=== PATIENT | female | born 1985 | race African-American/Black ===

== ENCOUNTER 2016-08-11 21:16 | Emergency (ER) | payer OTHER ==
[~2016-08-11] VITALS: Ht 160 cm; Wt 52.0 kg
[~2016-08-11 21:16] MED LIST: ALBU8I INH; MMW SWISH-SWAL
[2016-08-11 21:20] VITALS: BP 116/68; PULSE 106; RESP 18; TEMP 97.8; O2SAT 100
[2016-08-11] MEDS ORDERED: diphenhydrAMINE HCL 50 MG/ML VIAL ONE (21:20)
[2016-08-11] MEDS ORDERED: diphenhydrAMINE HCL 50 MG/ML VIAL IM STA (21:20)
[2016-08-11] MEDS ORDERED: LORazepam 2 MG/ML VIAL ONE (21:20)
[2016-08-11] MEDS ORDERED: HALOPERIDOL LACTATE 5 MG/ML AMP ONE (21:21)
[2016-08-11] MEDS ORDERED: HALOPERIDOL LACTATE 5 MG/ML AMP IM ONE (21:30)
[2016-08-11] MEDS ORDERED: LORazepam 2 MG/ML VIAL IM ONE (21:30)
--- NOTE | 2016-08-11 21:34 | PD ---
HPI Chief Complaint: Psychiatric Symptoms Time Seen by Provider: 21:27 Travel History International Travel<30 days: No Contact w/Intl Traveler<30days: No Traveled to known affect area: No History of Present Illness HPI This is a 31-year-old female who presents to the emergency department under a Pedersen act because police came to her house and she was screaming, irrational, yelling at her neighbor and cursing on the front lawn. She had 2 children in the house. Police tried to de-escalate her for about an hour but she was not able to be talked down. The patient is not able to provide any history. She is cursing, yelling and screaming at staff, not providing any longitudinal history. Patient did present here in 2005 with an episode of psychosis and at that time it was attributed to elicit drugs. PFSH Past Medical History Cerebrovascular Accident: No Diminished Hearing: No Myocardial Infarction: No ?: Unknown : 2 Para: 2 Social History Alcohol Use: No Tobacco Use: No Substance Use: Yes (COCAINE) Allergies-Medications (Allergen,Severity, Reaction): Coded Allergies: No Known Allergies (Verified , 08/29/15) Reported Meds & Prescriptions Reported Meds & Active Scripts Active No Active Prescriptions or Reported Medications Review of Systems Except as stated in HPI: all other systems reviewed are Neg Physical Exam Narrative GENERAL: Agitated, yelling, cursing SKIN: Warm and dry. HEAD: Normocephalic. EYES: No scleral icterus. No injection or drainage. NECK: Supple, trachea midline. CARDIOVASCULAR: Regular rate and rhythm without murmurs. RESPIRATORY: Breath sounds equal bilaterally. No accessory muscle use. GASTROINTESTINAL: Abdomen soft, non-tender, nondistended. MUSCULOSKELETAL: No cyanosis, or edema. PSYCH: poor insight and judgement Data Data Last Documented VS Vital Signs Date Time Temp Pulse Resp B/P Pulse Ox O2 Delivery O2 Flow Rate FiO2 08/12/16 02:34 104 20 140/71 99 08/11/16 22:20 Room Air 08/11/16 21:20 97.8 Orders Haloperidol Inj (Haldol Inj) (08/11/16 21:30) Diphenhydramine Inj (Benadryl Inj) (08/11/16 21:20) Lorazepam Inj (Ativan Inj) (08/11/16 21:30) Lorazepam Inj (Ativan Inj) (08/11/16 21:20) Diphenhydramine Inj (Benadryl Inj) (08/11/16 21:20) Haloperidol Inj (Haldol Inj) (08/11/16 21:21) Complete Blood Count With Diff (08/11/16 21:26) Comprehensive Metabolic Panel (08/11/16 21:26) Drug Screen, Random Urine (08/11/16 21:26) Iv Access Insert/Monitor (08/11/16 21:26) Alcohol (Ethanol) (08/11/16 21:26) Salicylates (Aspirin) (08/11/16 21:26) Tylenol (Acetaminophen) (08/11/16 21:26) Psych Screen (08/11/16 21:26) Restraints Non-Violent LOAN.Q3H (08/11/16 21:54) Diet Regular Basic (08/12/16 Breakfast) Ed Urine Pregnancytest Poc (08/12/16 03:30) Labs Laboratory Tests Test 08/11/16 08/12/16 21:30 03:13 White Blood Count 9.5 TH/MM3 Red Blood Count 4.68 MIL/MM3 Hemoglobin 15.1 GM/DL Hematocrit 44.8 % Mean Corpuscular Volume 95.8 FL Mean Corpuscular Hemoglobin 32.2 PG Mean Corpuscular Hemoglobin 33.6 % Concent Red Cell Distribution Width 13.6 % Platelet Count 168 TH/MM3 Mean Platelet Volume 10.6 FL Neutrophils (%) (Auto) 62.3 % Lymphocytes (%) (Auto) 28.3 % Monocytes (%) (Auto) 8.6 % Eosinophils (%) (Auto) 0.2 % Basophils (%) (Auto) 0.6 % Neutrophils # (Auto) 5.9 TH/MM3 Lymphocytes # (Auto) 2.7 TH/MM3 Monocytes # (Auto) 0.8 TH/MM3 Eosinophils # (Auto) 0.0 TH/MM3 Basophils # (Auto) 0.1 TH/MM3 CBC Comment DIFF FINAL Differential Comment Sodium Level 140 MEQ/L Potassium Level 3.8 MEQ/L Chloride Level 108 MEQ/L Carbon Dioxide Level 19.2 MEQ/L Anion Gap 13 MEQ/L Blood Urea Nitrogen 9 MG/DL Creatinine 0.89 MG/DL Estimat Glomerular Filtration 89 ML/MIN Rate Random Glucose 120 MG/DL Calcium Level 8.7 MG/DL Total Bilirubin 0.8 MG/DL Aspartate Amino Transf 25 U/L (AST/SGOT) Alanine Aminotransferase 28 U/L (ALT/SGPT) Alkaline Phosphatase 68 U/L Total Protein 8.4 GM/DL Albumin 4.6 GM/DL Salicylates Level 5.5 MG/DL Acetaminophen Level LESS THAN 2.0 MCG/ML Ethyl Alcohol Level 213 MG/DL Urine Opiates Screen NEG Urine Barbiturates Screen NEG Urine Amphetamines Screen NEG Urine Benzodiazepines Screen NEG Urine Cocaine Screen NEG Urine Cannabinoids Screen POS MDM Medical Decision Making Medical Screen Exam Complete: Yes Emergency Medical Condition: Yes Interpretation(s) Afebrile, tachycardic, normotensive No leukocytosis Electrolytes are reassuring Alcohol level is 213 Positive for cannabinoids Differential Diagnosis Alcohol intoxication, synthetic cannabinoid intoxication, electrolyte abnormality, intentional overdose Narrative Course This is a 31-year-old female who was brought in under a Pedersen act by police for bizarre and agitated behavior. She did acknowledge alcohol use. She was brought into the emergency department and on arrival she was belligerent, screaming, cursing and combative with staff. She was placed in leather restraints and given chemical sedation with Haldol, Ativan and Benadryl. She significantly improved during her stay in the emergency department. She was cleared medically and will be admitted psychiatrically to act. I suspect her symptoms are in the setting of drug induced psychosis. Scripts No Active Prescriptions or Reported Meds Yeni Scales MD Aug 11, 2016 21:34
[2016-08-11 21:56] LABS: AUTOMATED NEUTROPHIL # 5.9 TH/MM3 (1.8-7.7); BASOPHIL # 0.1 TH/MM3 (0-0.2); BASOPHIL % 0.6 % (0.0-2.0); EOSINOPHIL % 0.2 % (0.0-4.0); HEMATOCRIT 44.8 % (35.0-46.0); HEMO FLAGS DIFF FINAL; LYMPH % 28.3 % (9.0-44.0); LYMPHOCYTE # 2.7 TH/MM3 (1.0-4.8); MEAN CELL VOLUME 95.8 FL (80.0-100.0); MEAN CORPUSCULAR HEMOGLOBIN 32.2 PG (27.0-34.0); MEAN CORPUSCULAR HGB CONC 33.6 % (32.0-36.0); MONO % 8.6 % (0.0-8.0); NEUT % 62.3 % (16.0-70.0); PLATELET COUNT 168 TH/MM3 (150-450); RED BLOOD COUNT 4.68 MIL/MM3 (4.00-5.30); RED CELL DISTRIBUTION WIDTH 13.6 % (11.6-17.2); WHITE BLOOD COUNT 9.5 TH/MM3 (4.0-11.0)
[2016-08-11 22:14] LABS: ALT (GPT) 28 U/L (10-53); ANION GAP 13 MEQ/L (5-15); AST (GOT) 25 U/L (15-37); BICARBONATE 19.2 MEQ/L (21.0-32.0); BLOOD UREA NITROGEN 9 MG/DL (7-18); CHLORIDE 108 MEQ/L (98-107); GLOMERULAR FILTRATION RATE 89 ML/MIN (>89); POTASSIUM 3.8 MEQ/L (3.5-5.1); SODIUM (NA) 140 MEQ/L (136-145)
[2016-08-11 22:16] LABS: ALKALINE PHOSPHATASE 68 U/L (45-117); TOTAL BILIRUBIN ADULT 0.8 MG/DL (0.2-1.0)
[2016-08-11 22:20] VITALS: BP 116/81; PULSE 90; RESP 17; O2SAT 99
[2016-08-11 22:27] LABS: ACETAMINOPHEN LESS THAN 2.0 MCG/ML (10.0-30.0)
[2016-08-12 02:34] VITALS: BP 140/71; PULSE 104; RESP 20; O2SAT 99
[2016-08-12 04:09] LABS: AMPHETAMINE, URINE NEG (NEG); BARBITURATES, URINE NEG (NEG); COCAINE, URINE NEG (NEG)
[2016-08-12 06:15] VITALS: BP 109/58; PULSE 94; RESP 17; O2SAT 99
== END 2016-08-12 07:50 ==
LOC: NEPC 21:16 → NEPJ 08-12 07:50
DX: F10.10 Alcohol abuse, uncomplicated (principal); R45.1 Restlessness and agitation
CPT/HCPCS: 80053; 80307; 80320; 84703; 85025; 96372; 96374; 99285; J1200; J1630; J2060; 80329; G0480

== ENCOUNTER 2016-10-24 12:23 | Emergency (ER) | payer SELFPAY ==
[~2016-10-24] VITALS: Ht 160 cm; Wt 65.0 kg
[2016-10-24 12:24] VITALS: BP 124/59; PULSE 77; RESP 16; TEMP 97; O2SAT 100
--- NOTE | 2016-10-24 12:27 | PD ---
Physical Exam Time Seen by Provider: 12:26 Narrative 31 yobf presents for left upper dental pain for 1 week, radiating to christian. Taking over the counter nsaids for pain control. VSS Seen at triage desk. Awaiting bed placement. Data Data Last Documented VS Vital Signs Date Time Temp Pulse Resp B/P Pulse Ox O2 Delivery O2 Flow Rate FiO2 10/24/16 12:24 97.0 77 16 124/59 100 Room Air MDM Medical Record Reviewed: Yes Supervised Visit with NICK: Yes Scripts No Active Prescriptions or Reported Meds Mika Yanez Oct 24, 2016 12:27
[2016-10-24] MEDS ORDERED: AMOX500C PO (13:22)
[2016-10-24] MEDS ORDERED: PERI0.126 SWISH-SPIT (13:22)
[2016-10-24] MEDS ORDERED: IBUP800T23 PO (13:22)
--- NOTE | 2016-10-24 13:22 | PD ---
HPI Chief Complaint: Oral / Dental Pain or Problem Time Seen by Provider: 13:20 Travel History International Travel<30 days: No Contact w/Intl Traveler<30days: No Traveled to known affect area: No History of Present Illness HPI 31-year-old female presents to the emergency Department with complaint of left upper tooth pain for a little over a week. She denies fever, chills, nausea, vomiting. Denies facial edema, erythema. Pain radiates to her left year. Has been taking [id number] medications with minimal relief of pain. Has not tried any other treatments to alleviate her symptoms. No known allergies. No other modifying factors or associated signs and symptoms. PFSH Past Medical History Anxiety: Yes Cerebrovascular Accident: No Diminished Hearing: No Psychiatric: Yes Myocardial Infarction: No ?: Not : 2 Para: 2 Social History Alcohol Use: No (UNKNOWN) Tobacco Use: No (UNKNOWN) Substance Use: Yes (COCAINE) Allergies-Medications (Allergen,Severity, Reaction): Coded Allergies: No Known Allergies (Verified , 10/24/16) Reported Meds & Prescriptions Reported Meds & Active Scripts Active Peridex Liq (Chlorhexidine Gluconate (Mouth) Liq) 0.12% Soln 15 Ml SWISH-SPIT BID 10 Days Ibuprofen 800 Mg Tab 800 Mg PO Q6HR PRN Amoxicillin 500 Mg Cap 500 Mg PO BID 10 Days Review of Systems Except as stated in HPI: all other systems reviewed are Neg Physical Exam Narrative GENERAL: Well-nourished, well-developed female patient, in no acute distress; afebrile, nontoxic-appearing SKIN: Warm and dry. HEAD: Atraumatic. Normocephalic. No facial edema, erythema, tenderness on palpation. No lymphadenopathy. EYES: Pupils equal and round. No scleral icterus. No injection or drainage. ENT: Mucosa pink and moist. Airway patent. MOUTH: Mucous membranes moist, no lesions, tongue and gums appear normal. Left upper second molar, tooth #15, with large dental carry and decay; with tenderness on palpation. Surrounding gingiva is without erythema, edema, drainage. No obvious abscess noted. NECK: Trachea midline. No lymphadenopathy. CARDIOVASCULAR: Regular rate. RESPIRATORY: No accessory muscle use. GASTROINTESTINAL: Flat. MUSCULOSKELETAL: No obvious deformities. No clubbing. No cyanosis. No edema. NEUROLOGICAL: Awake and alert. Oriented 3. No obvious cranial nerve deficits. Motor grossly within normal limits. Normal speech. PSYCHIATRIC: Appropriate mood and affect; insight and judgment normal. Data Data Last Documented VS Vital Signs Date Time Temp Pulse Resp B/P Pulse Ox O2 Delivery O2 Flow Rate FiO2 10/24/16 12:24 97.0 77 16 124/59 100 Room Air MDM Medical Decision Making Medical Screen Exam Complete: Yes Emergency Medical Condition: Yes Medical Record Reviewed: Yes Differential Diagnosis Dentalgia, dental abscess, gingivitis, infected dental carry Narrative Course 31-year-old female with dentalgia to left upper second molar #15. Patient is afebrile and nontoxic-appearing. Emergency dental sheet information sheet provided. Amoxicillin, Peridex mouth rinse, ibuprofen prescribed for home. Inserted patient to follow up with dentist. Patient verbalizes understanding and agreement with treatment plan. Patient is medically cleared and stable for discharge. Discussed reasons to return to the emergency department. Instructed patient to follow up with primary care provider. Patient agrees with treatment plan. The patients vital signs are stable and the patient is stable for outpatient follow-up and treatment. Patient discharged home, stable and in no acute distress. Diagnosis Primary Impression: Dentalgia Referrals: Dentist Primary Care Physician Patient Instructions: Dental Abscess (ED), Dental Caries (ED), General Instructions, Toothache (ED) Departure Forms: Tests/Procedures, Work Release Enter return to work date: Oct 25, 2016 Additional Instructions: Complete full course of antibiotics Ibuprofen as directed and as needed to reduce pain and inflammation Use Magic mouthwash rinse as directed and as needed to decrease pain Use Peridex as directed for oral hygiene Warm compresses to the affected area Follow-up with dentist Follow-up with primary care provider Return to emergency department immediately with worsening of symptoms Med/Other Pt SpecificInfo: Prescription(s) given Scripts Chlorhexidine Gluconate (Mouth) Liq (Peridex Liq)0.12% Soln15 Ml SWISH-SPIT BID 10 Days Ref 0 Prov:Fabiola MajorP 10/24/16 Ibuprofen 800 Mg [id number] Mg PO Q6HR PRN (PAIN) #30 TAB Ref 0 Prov:Fabiola Major P[employer]DER C[employer] TESTER 10/24/16 Amoxicillin 500 Mg [id number] Mg PO BID 10 Days Ref 0 Prov:Fabiola Major POWDER C[employer] TESTER 10/24/16 Disposition: 01 DISCHARGE HOME Condition: Stable Fabiola Major Oct 24, 2016 13:22
== END 2016-10-24 13:37 | disposition home or self-care (01) ==
LOC: NEPK 12:23
DX: K08.89 Other specified disorders of teeth and supporting structures (principal); Z86.59 Personal history of other mental and behavioral disorders
CPT/HCPCS: 99282